=== PATIENT | female | born 2000 | race Hispanic/Latino ===

== ENCOUNTER 2023-06-10 15:34 | Observation (INO) | payer BC, OTHER ==
[2023-06-10 16:09] VITALS: BMI 24.5
[2023-06-10] MEDS ORDERED: hydrALAZINE 20 MG/ML VIAL SLOW IVP PRN (17:04)
[2023-06-10] MEDS ORDERED: Ondansetron PF 4 MG/2 ML Vial IVP PRN (17:10)
[2023-06-10] MEDS ORDERED: Zolpidem Tartrate 5 MG TAB PO PRN (17:10)
[2023-06-10] MEDS ORDERED: Acetaminophen 500 MG TAB PO PRN (17:10)
[2023-06-10] MEDS ORDERED: Promethazine HCl 25 MG/ML VIAL IM PRN (17:10)
[2023-06-10] MEDS ORDERED: Betamet Acet/Betamet Na Ph 30 MG/5 ML VIAL IM SCH (17:15)
[2023-06-10] MEDS ORDERED: Betamet Acet/Betamet Na Ph 30 MG/5 ML VIAL ONE (17:33)
[2023-06-10 18:52] LABS: #Eosinphils 0.1 10x3/uL (0.0-0.5); #Monocytes 0.6 10x3/uL (0.0-1.1); #Neutrophils 6.1 10x3/uL (1.5-8.4); %Basophils 0.3 % (0.0-2.0); %Eosinophils 0.5 % (0.0-6.0); %Lymphocytes 26.1 % (18.0-47.0); %Monocytes 6.7 % (0.0-10.0); %Neutrophils 66.1 % (40.0-75.0); Hematocrit 32.7 % (34.9-44.5); Hemoglobin 10.2 g/dL (12.0-15.5); Mean Corpuscular HGB CONC 31.2 g/dL (32.0-36.0); Mean Corpuscular Hemoglobin 23.4 pg (27.0-33.0); Mean Corpuscular Volume 75.2 fl (81.6-98.3); Mean Platelet Volume 10.1 fl (7.4-10.4); Platelet Count 316 10x3/uL (150-450); RBC Distribution Width 15.3 % (11.5-14.5); Red Blood Cell (RBC) Count 4.35 10x6/uL (3.90-5.03); White Blood Cell (WBC) Count 9.2 10x3/uL (3.5-10.5)
[2023-06-10 19:05] LABS: Fetal Membranes Rupture No Membranes Rupture (No Rupture)
[2023-06-10 20:03] LABS: Bilirubin Neg (Negative); Blood, Urine Negative (Negative); Clarity Clear (Clear); Glucose, Urine (Dipstick) Normal (Negative); Ketone, Urine Negative (Negative); Leukocyte Negative (Negative); Nitrite Negative (Negative); Protein, Urine (Dipstick) Negative (Neg-Trace); Specific Gravity, Urine 1.015 (1.005-1.030); Urobilinogen Normal mg/dL (Less than 2)
[2023-06-10 20:19] LABS: CAUTI Indications for Culture Pregnancy; RBC/HPF 0-3 HPF (0-3); Squamous Epithelial 0-3 HPF (0-3); WBC/HPF 0-3 HPF (0-3)
[2023-06-10 20:22] LABS: Bacteria/HPF 2+ HPF (None Seen)
[2023-06-10 20:23] LABS: Urine Culture Reflex Yes Yes
[2023-06-11] MEDS ORDERED: Indomethacin 25 mg Capsule PO SCH ×2 (11:00→21:00)
[2023-06-11] MEDS ORDERED: Cephalexin 500 MG CAP PO SCH ×2 (11:00→21:00)
[2023-06-13 12:35] LABS: Group B Streptococcus by PCR Not Detected (NotDetected)
== END 2023-06-11 14:02 | disposition short-term general hospital (02) ==
LOC: CSHLD/OP 15:34 → CSHLD 19:06
PROVIDERS: ADMIT Obstetrics & Gynecology; ATTEND Obstetrics & Gynecology
DX: O34.32 Maternal care for cervical incompetence, second trimester (principal); O99.891 Other specified diseases and conditions complicating pregnancy; R00.0 Tachycardia, unspecified; O99.012 Anemia complicating pregnancy, second trimester; D64.9 Anemia, unspecified; O23.42 Unspecified infection of urinary tract in pregnancy, second trimester; N39.0 Urinary tract infection, site not specified; Z3A.23 23 weeks gestation of pregnancy; Z91.018 Allergy to other foods; Z79.899 Other long term (current) drug therapy
CPT/HCPCS: 81001; 84112; 85025; 86850; 86900; 86901; 87086; 87653; 93005; 93010; 93306; 99285; G0378; J0702

== ENCOUNTER 2023-08-28 07:22 | Day surgery (SDC) | payer BC ==
[2023-08-28] MEDS ORDERED: Acetaminophen 500 MG TAB ONE (07:45)
[2023-08-28] MEDS ORDERED: Iron Sucrose Complex 500 MG in Sodium Chloride 0.9% 250 ML 250 ML IVPB SCH (08:00)
== END 2023-08-28 12:50 | disposition home or self-care (01) ==
LOC: CSHSDC 07:22
PROVIDERS: ATTEND Obstetrics & Gynecology
DX: O99.013 Anemia complicating pregnancy, third trimester (principal); D50.9 Iron deficiency anemia, unspecified; Z3A.33 33 weeks gestation of pregnancy; Z91.018 Allergy to other foods
CPT/HCPCS: J1756; J7050

== ENCOUNTER 2023-09-20 12:01 | Day surgery (SDC) | payer BC ==
[2023-09-20 12:34] VITALS: BMI 28.9
[2023-09-20] MEDS ORDERED: hydrALAZINE 20 MG/ML VIAL SLOW IVP PRN (12:55)
[2023-09-20 13:01] LABS: Fetal Membranes Rupture No Membranes Rupture (No Rupture)
== END 2023-09-20 14:30 | disposition home or self-care (01) ==
LOC: CSHLD/OP 12:01
PROVIDERS: ATTEND Obstetrics & Gynecology
DX: O47.1 False labor at or after 37 completed weeks of gestation (principal); O26.873 Cervical shortening, third trimester; O99.413 Diseases of the circulatory system complicating pregnancy, third trimester; I49.9 Cardiac arrhythmia, unspecified; Z79.899 Other long term (current) drug therapy; Z98.890 Other specified postprocedural states; Z91.018 Allergy to other foods; Z3A.38 38 weeks gestation of pregnancy
CPT/HCPCS: 84112